=== PATIENT | female | born 1965 | race African-American/Black ===

== ENCOUNTER 2020-07-19 09:03 | Emergency (ER) | payer SELFPAY ==
[~2020-07-19] VITALS: Ht 165.1 cm; Wt 66.0 kg
[2020-07-19] MEDS ORDERED: HYDROMORPHONE HCL/PF 2MG/ML CPJ IV ONE (10:00)
[2020-07-19 10:17] LABS: BASOPHILS % 0.4 % (0.0-2.0); EOSINOPHILS % 0.4 % (0.0-5.0); HEMATOCRIT. 38.9 % (36.0-48.0); MEAN CORPUSCULAR HEMOGLOBIN 29.8 pg (28.0-32.0); MEAN CORPUSCULAR VOLUME 89.3 fL (81.0-99.0); MEAN PLATELET VOLUME 7.8 fl (7.4-10.4); MONOCYTES % 4.4 % (2.0-8.0); NEUTROPHILS % 74.8 % (40.0-76.0); PLATELET 158 x1000/uL (130-400); RED BLOOD CELL COUNT 4.35 mill/uL (4.2-5.4); RED CELL DISTRIBUTION WIDTH 13.6 % (11.6-14.6)
[2020-07-19 10:23] LABS: CHLORIDE 117 mEq/L (98-107)
[2020-07-19 10:27] LABS: INR 1.1; PROTHROMBIN TIME 11.8 sec (9.6-11.0)
[2020-07-19] MEDS ORDERED: IOHEXOL-300 100 ML BOTTLE ONE (11:11)
[2020-07-19 11:30] VITALS: BP 131/82
[2020-07-19 12:33] LABS: CLARITY URINE CLEAR (CLEAR); COLOR URINE YELLOW (YELLOW); KETONES URINE NEGATIVE (NEGATIVE); LEUKOCYTE ESTERASE URINE NEGATIVE (NEGATIVE); NITRITE URINE NEGATIVE (NEGATIVE); OCCULT BLOOD URINE 2+ (NEGATIVE); PROTEIN URINE NEGATIVE (NEGATIVE); SPECIFIC GRAVITY URINE 1.051 (1.005-1.030); UROBILINOGEN URINE 0.2 E.U./dL (0.2-1.0)
== END 2020-07-19 14:05 | disposition home or self-care (01) ==
LOC: ER 09:03
DX: N20.9 Urinary calculus, unspecified (principal); Z88.0 Allergy status to penicillin; Z90.710 Acquired absence of both cervix and uterus; Z98.890 Other specified postprocedural states
CPT/HCPCS: 36415; 74177; 80053; 81003; 85025; 85610; 93005; 96374; 99285; J1170; Q9967; Z7610